=== PATIENT | male | born 1995 | race Caucasian/White ===

== ENCOUNTER 2023-01-09 20:40 | Emergency (ER) | payer OTHER ==
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
[2023-01-09 23:03] VITALS: BP 135/65; O2SAT 96
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
== END 2023-01-09 23:22 | disposition home or self-care (01) ==
LOC: ED 20:40
DX: S09.90XA Unspecified injury of head, initial encounter (principal); W50.0XXA Accidental hit or strike by another person, initial encounter
CPT/HCPCS: 99283; 99284